=== PATIENT | male | born 2000 | race Caucasian/White ===

== ENCOUNTER 2021-08-06 19:51 | Emergency (ER) | payer BC ==
[~2021-08-06] VITALS: Ht 177.8 cm; Wt 77.3 kg
[2021-08-06 19:56] VITALS: TEMP 98.4
[2021-08-06 20:45] LABS: HEMATOCRIT 50.1 % (36.0-47.0); HEMOGLOBIN 17.3 g/dl (12.5-16.1); MEAN CELL VOLUME 89 fl (80.0-95.0); MEAN CORPUSCULAR HEMOGLOBIN 31 pg (26-32); MEAN CORPUSCULAR HGB CONC 35 g/dl (33.0-37.0); MEAN PLATELET VOLUME 10.1 fl (7.4-10.4); PLATELET COUNT 236 K/mm3 (130-400); RED BLOOD COUNT 5.66 M/mm3 (4.20-5.60); REDCELL DISTRIBUTION WIDTH-CV 12.2 % (11.5-14.5)
[2021-08-06 20:56] LABS: BILIRUBIN,TOTAL 1.1 mg/dL (0.2-1.2); C-REACTIVE PROTEIN 0.27 mg/dL (0.00-0.50); CALCIUM 9.8 mg/dL (8.4-10.2); CREATININE, serum 1.01 mg/dL (0.72-1.25); POTASSIUM 4.2 mmol/L (3.5-4.5); TOTAL PROTEIN 7.7 gm/dL (6.2-8.1)
[2021-08-06 21:33] LABS: BAND 5 % (0-10); LYMPHOCYTE 1 % (20.0-51.0); NEUTROPHILS 92 % (42.0-75.2)
[2021-08-06 21:34] LABS: PLATELET ESTIMATE NORMAL (NORMAL)
[2021-08-06 21:41] LABS: COLLECTION METHOD CLEAN CATCH
[2021-08-06 21:51] LABS: MUCOUS Present (NOT PRESENT); PH 8 (5-8); SQUAMOUS EPITHELIAL 0-2 /hpf (0-10); URINE APPEARANCE Cloudy (CLEAR/HAZY); URINE BACTERIA None Seen /hpf (NONE SEEN); URINE BILIRUBIN Negative (NEGATIVE); URINE BLOOD Negative (NEGATIVE); URINE COLOR Amber (YELLOW); URINE GLUCOSE Negative (NEGATIVE); URINE KETONE 2+ (NEGATIVE); URINE LEUKOCYTE ESTERASE Negative (NEGATIVE); URINE NITRATE Negative (NEGATIVE); URINE PROTEIN(semi-quant) 2+ (NEGATIVE); URINE RBC 0-2 /hpf (0-2); URINE UROBILINOGEN Negative (NEGATIVE)
[2021-08-06] MEDS ORDERED: ZOFRAN ODT4 MG PO (22:15)
[2021-08-06 22:33] VITALS: BP 106/57; PULSE 96
== END 2021-08-06 22:31 | disposition home or self-care (01) ==
LOC: COL.ER 19:51
PROVIDERS: Nurse Practitioner
DX: R10.84 Generalized abdominal pain (principal); R11.2 Nausea with vomiting, unspecified; R19.7 Diarrhea, unspecified
CPT/HCPCS: J1885; J2405; J7030

== ENCOUNTER 2024-03-04 19:51 | Emergency (ER) | payer BC ==
[~2024-03-04] VITALS: Ht 177.8 cm; Wt 82.7 kg
[~2024-03-04 19:51] MED LIST: ZOFRAN ODT4 MG PO
[2024-03-04 20:02] VITALS: BP 132/68; TEMP 101
[2024-03-04] MEDS ORDERED: Acetaminophen 500 MG TAB PO ONE (20:15)
[2024-03-04 21:12] VITALS: PULSE 90
== END 2024-03-04 21:12 | disposition home or self-care (01) ==
LOC: COL.ER 19:51
DX: R50.9 Fever, unspecified (principal)